=== PATIENT | male | born 1945 | race Caucasian/White ===

== ENCOUNTER 2016-10-15 07:09 | Day surgery (SDC) | payer BC, MEDICARE ==
[2016-10-15] MEDS ORDERED: Propofol 200 MG/20 ML SDV ONE (07:11)
[2016-10-15] MEDS ORDERED: Midazolam 1 MG/ML 2 ML SDV ONE (07:11)
[2016-10-15] MEDS ORDERED: fentaNYL 100 MCG/2 ML SDV ONE (07:11)
[2016-10-15] MEDS ORDERED: Dextrose 5%-Lactated Ringers 1,000 ML IV SCH (08:00)
[2016-10-15] MEDS ORDERED: Meropenem 500 MG in Sodium Chloride 0.9% 50 ML IV ONE (09:15)
[2016-10-15 10:45] VITALS: BP 118/68
--- NOTE | 2016-10-21 14:41 | OR ---
DATE OF PROCEDURE: 10/15/2016 PREOPERATIVE DIAGNOSIS: Indications for screening colonoscopy. POSTOPERATIVE DIAGNOSIS: Normal screening colonoscopy. OPERATIVE PROCEDURE: Flexible colonoscopy. ANESTHESIA: IV sedation. INDICATION FOR PROCEDURE: A 71-year-old male referred for screening colonoscopy. He does have a history of prostate carcinoma, which puts him at somewhat high risk for colonic neoplasia. The plan is to proceed with a colonoscopy with polypectomy and/or biopsies as indicated. Potential risks including bleeding and perforation were discussed, and the patient wishes to proceed. DETAILS OF PROCEDURE: The patient was taken to the operating room and placed in a left lateral decubitus position. IV sedation was administered, after which the initial digital rectal exam was performed and was unremarkable. Colonoscope was then passed into the rectum and retroflexion revealing uncomplicated hemorrhoidal columns. The scope was eventually passed to the cecum. The prep was fairly good. There was a thin layer of liquid stool covering much of the surface, but this would obscure only the tiniest of polyps. To that level, no abnormalities were noticed, no diverticula, no areas of colitis, and no polyps or other signs of neoplasia. The scope was then withdrawn and the procedure then concluded. The patient was taken to the recovery room in satisfactory condition. There were no evident complications. Elton Davis MD /[id number]
== END 2016-10-15 11:20 | disposition home or self-care (01) ==
LOC: JP.SDS 07:09
PROVIDERS: ATTEND Surgery
DX: Z12.11 Encounter for screening for malignant neoplasm of colon (principal); Z85.46 Personal history of malignant neoplasm of prostate
CPT/HCPCS: G0121; J2185; J2250; J2704; J3010; J7042; J7050

== ENCOUNTER 2020-06-29 06:58 | Day surgery (SDC) | payer MEDICARE ==
[2020-06-29] MEDS ORDERED: Lidocaine 1% with EPINEPHrine 1:100,000 50 ML MDV ONE (07:03)
[2020-06-29] MEDS ORDERED: Sodium Chloride 0.9% 10 ML ONE (07:03)
[2020-06-29] MEDS ORDERED: Sodium Tetradecyl Sulfate 1% 20 MG/2 ML SDV ONE (07:03)
[2020-06-29] MEDS ORDERED: fentaNYL 100 MCG/2 ML SDV ONE (07:19)
[2020-06-29] MEDS ORDERED: Midazolam 1 MG/ML 2 ML SDV ONE (07:19)
[2020-06-29] MEDS ORDERED: Propofol 200 MG/20 ML SDV ONE ×2 (07:19→09:03)
[2020-06-29] MEDS ORDERED: Sodium Chloride 0.9% 1,000 ML IV SCH (07:30)
[2020-06-29] MEDS: Lidocaine 1% w/EPINEPHrine 50 ML, Sodium Bicarbonate 5 MEQ in Sodium Chloride 0.9% 950 ML INJECT SCH ×2 (09:04→09:16)
[2020-06-29 10:34] VITALS: BP 129/54; PULSE 67
--- NOTE | 2020-06-29 11:22 | OR ---
DATE OF PROCEDURE: 06/29/2020 SURGEON: Zenon Cotter MD PROCEDURES: 1. Radiofrequency ablation of left greater saphenous vein. 2. Radiofrequency ablation of right greater saphenous vein. 3. Sclerotherapy, left leg, multiple. 4. Sclerotherapy, right leg, multiple. 5. Compression wrap, left leg, 20 mmHg pressure. 6. Compression wrap, right leg, 20 mmHg pressure. COMPLICATIONS: None. PEDIATRIC ACUTE CARE UNIT NURSE: None. ANESTHESIA: MAC. PRE PROCEDURE DIAGNOSIS: Venous insufficiency with inflammation and pain. POSTOPERATIVE DIAGNOSIS: Venous insufficiency with inflammation and pain. RISKS: Risks, benefits, alternatives, and limitations including, but not limited to, infection, bleeding, DVT formation, and other risks not listed here were explained to the patient and they wished to proceed. PROCEDURE IN DETAIL: The patient was placed in the supine position. The left greater saphenous vein was accessed first. This was accessed using a 21-gauge needle and then exchanged for a 7-Yoruba sheath. The RFA probe was advanced to 5 cm from saphenofemoral junction. Tumescent fluid was injected in a 1 cm jacket around this. Direct even pressure was held as the probe was deployed x2 proximally, distally, and x1 in all other segments. The sheath and device were then removed. Pressure was held for 10 minutes and Dermabond was applied. The other leg was then performed in the same manner, same fashion, same technique, in the same sequence using the same equipment. Sclerotherapy was then performed in the left and right legs, 6 on the right, 6 on the left, using 0.33% sodium tetradecyl. This was always drawn back to ensure intravascular injection only, and no more than 2 mL was injected in one location. The two-layer two-stage compression was then performed in a distal to proximal gradient. This was in a [id number] fashion. The patient tolerated the procedure well. Zenno Cotter MD /[id number]
== END 2020-06-29 11:35 | disposition home or self-care (01) ==
LOC: JP.SDS 06:58
PROVIDERS: ATTEND Surgery
DX: I87.2 Venous insufficiency (chronic) (peripheral) (principal); E78.5 Hyperlipidemia, unspecified; E11.65 Type 2 diabetes mellitus with hyperglycemia; E66.01 Morbid (severe) obesity due to excess calories
CPT/HCPCS: 36470; 36475; J1642; J2250; J2704; J3010; J7030; J3490

== ENCOUNTER 2021-07-03 12:39 | Emergency (ER) | payer MEDICARE ==
[2021-07-03 14:17] VITALS: BP 120/58; PULSE 71
== END 2021-07-03 14:43 | disposition home or self-care (01) ==
LOC: JP.ED 12:39
DX: R60.0 Localized edema (principal); E78.00 Pure hypercholesterolemia, unspecified; K21.9 Gastro-esophageal reflux disease without esophagitis; M19.90 Unspecified osteoarthritis, unspecified site; E11.9 Type 2 diabetes mellitus without complications; E66.9 Obesity, unspecified; Z68.43 Body mass index [BMI] 50.0-59.9, adult; Z98.890 Other specified postprocedural states; Z79.82 Long term (current) use of aspirin; Z79.899 Other long term (current) drug therapy
CPT/HCPCS: 93971-26; 93971-RT; 99284-25

== ENCOUNTER 2023-09-08 14:19 | Observation (INO) | payer MEDICARE ==
[2023-09-08] MEDS ORDERED: Polyethylene Glycol 3350 Powder 17 GM Packet PO PRN (14:35)
[2023-09-08] MEDS ORDERED: Acetaminophen 325 MG Tab PO PRN (14:35)
[2023-09-08] MEDS ORDERED: Albuterol 0.083% 2.5 MG/3 ML Neb Soln NEB PRN (14:35)
[2023-09-08] MEDS ORDERED: Ondansetron 4 MG/2 ML SDV IV PRN (14:35)
[2023-09-08] MEDS ORDERED: Sodium Chloride 0.9% 10 ML Syringe FLUSH PRN ×2 (14:35→17:24)
[2023-09-08 14:58] LABS: CARBOXYHEMOGLOBIN 1.4 % (0.0-1.6); METHEMOGLOBIN 0.9 %; O2 SATURATION ARTERIAL 93.6 % (95.0-98.0); OXYHEMOGLOBIN 91.4 %; PCO2 ARTERIAL 52.7 mmHg (35.0-42.0); PO2 ARTERIAL 68.2 mmHg (75.0-100.0); TOTAL HEMOGLOBIN 14.6 g/dL (13.5-18.0)
[2023-09-08 15:28] LABS: A/G RATIO 0.9 (1.2-2.2); ALANINE AMINOTRANSFERASE,ALT 28 U/L (12-78); ALBUMIN 3.2 g/dL (3.4-5.0); ALKALINE PHOSPHATASE 82 U/L (46-116); ANION GAP 8.3 mmol/L (5.0-14.0); ASPARTATE AMNIOTRANSFERASE,AST 14 U/L (15-37); BILIRUBIN TOTAL 0.4 mg/dL (0.2-1.0); BLOOD UREA NITROGEN,BUN 20 mg/dL (7-18); CALCIUM 9.6 mg/dL (8.5-10.1); CARBON DIOXIDE,CO2 30 mmol/L (21-32); CHLORIDE,CL 106 mmol/L (100-108); ESTIMATED GFR 78 mL/min (>60); GLUCOSE RANDOM 111 mg/dL (74-106); MAGNESIUM 1.9 mg/dL (1.8-2.4); POTASSIUM,K 3.7 mmol/L (3.6-5.2); PROTEIN TOTAL,TP 6.8 g/dL (6.4-8.2); SODIUM,NA 144 mmol/L (140-148)
[2023-09-08 15:28] LABS: BASOPHILS ABSOLUTE AUTO 0.06 K/uL (0.00-0.10); EOSINOPHILS ABSOLUTE AUTO 0.09 K/uL (0.00-0.40); EOSINOPHILS PERCENT AUTO 1.4 % (0.0-5.4); HEMATOCRIT 44.3 % (38.4-49.7); HEMOGLOBIN 14.5 g/dL (12.9-16.9); IMMATURE GRAN PERCENT AUTO 0.3 % (0.0-0.7); LYMPHOCYTES ABSOLUTE AUTO 0.99 K/uL (0.8-3.3); LYMPHOCYTES PERCENT AUTO 15.8 % (11.4-47.7); MEAN CORPUSCULAR HEMOGLOBIN 31.2 pg (31.6-35.5); MEAN CORPUSCULAR HGB CONC 32.7 g/dL (31.6-35.5); MEAN CORPUSCULAR VOLUME 95.3 fL (81.4-99.0); MONOCYTES ABSOLUTE AUTO 0.65 K/uL (0.20-0.90); MONOCYTES PERCENT AUTO 10.4 % (3.3-12.6); NEUTROPHILS ABSOLUTE AUTO 4.45 K/uL (1.0-7.6); NEUTROPHILS PERCENT AUTO 71.1 % (40.0-78.1); PLATELET COUNT,PLT 144 K/uL (130-375); RED BLOOD CELL COUNT 4.65 M/uL (4.14-5.76); WHITE BLOOD CELL COUNT,WBC 6.3 K/uL (3.2-11.0)
[2023-09-08 15:29] LABS: IMMATURE GRAN ABSOLUTE AUTO 0.02 K/uL (0.00-0.23)
[2023-09-08 16:25] LABS: CORONAVIRUS COVID-19 NAA NEGATIVE (NEGATIVE); INFLUENZA A NAA NEGATIVE (NEGATIVE); INFLUENZA B NAA NEGATIVE (NEGATIVE); RESPIRATORY SYNCYTIAL VIR NAA NEGATIVE (NEGATIVE)
[2023-09-08] MEDS ORDERED: Fluticasone NASAL Spray 16 GM Bottle NASBOTH PRN (16:26)
[2023-09-08] MEDS: Iopamidol 612 MG/ML 100 ML Bottle IV SCH (17:29)
[2023-09-08] MEDS: Sodium Chloride 0.9% 100 ML IV SCH (17:30)
[2023-09-08] MEDS: Furosemide 40 MG/4 ML VIAL IVPUSH ONE (17:39)
[2023-09-08] MEDS: Enoxaparin 40 MG/0.4 ML Syringe SUBCUT SCH (17:39)
[2023-09-08] MEDS: atorvaSTATin 20 MG Tab PO SCH (20:01)
[2023-09-09 06:18] LABS: CALCIUM 8.9 mg/dL (8.5-10.1); CREATININE 1.1 mg/dL (0.8-1.3); EST CRCL DRUG DOSING (CG) 55.27 mL/min
[2023-09-09] MEDS ORDERED: Pantoprazole 40 MG Tab.CR PO SCH (07:30)
[2023-09-09] MEDS: Aspirin 81 MG Tab.Chew PO SCH (08:26)
[2023-09-09] MEDS: OMEPRAZOLE 20MG **PTOM PO SCH (08:26)
[2023-09-09] MEDS: Furosemide 40 MG/4 ML VIAL IVPUSH ONE (10:00)
[2023-09-09 15:07] VITALS: BP 135/61; PULSE 61
[2023-09-09] MEDS ORDERED: SIMVASTATIN 40MG **PTOM PO SCH (21:00)
== END 2023-09-09 15:52 ==
LOC: JP.MS 14:19 → INTOOBSV 14:19
PROVIDERS: ADMIT Hospitalist; ATTEND Hospitalist
DX: R60.9 Edema, unspecified (principal); I87.8 Other specified disorders of veins; G47.33 Obstructive sleep apnea (adult) (pediatric); R00.1 Bradycardia, unspecified; E11.65 Type 2 diabetes mellitus with hyperglycemia; M19.90 Unspecified osteoarthritis, unspecified site; E78.00 Pure hypercholesterolemia, unspecified; K21.9 Gastro-esophageal reflux disease without esophagitis; N40.1 Benign prostatic hyperplasia with lower urinary tract symptoms; N39.498 Other specified urinary incontinence; R06.00 Dyspnea, unspecified; E66.01 Morbid (severe) obesity due to excess calories; Z68.43 Body mass index [BMI] 50.0-59.9, adult; Z85.46 Personal history of malignant neoplasm of prostate; Z79.82 Long term (current) use of aspirin; Z79.899 Other long term (current) drug therapy; Z96.649 Presence of unspecified artificial hip joint; Z96.659 Presence of unspecified artificial knee joint
CPT/HCPCS: 0241U; 36415; 36600; 71275; 80048; 80053; 82803; 83735; 83880; 84145; 85025; 93005; 93010; 96372; 96374; 96376; 99222; 99238; A9270; G0378; G0379; J1650; J1940; J3490; Q9967